=== PATIENT | female | born 1995 | race Caucasian/White ===

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

== ENCOUNTER → 2017-01-04 | Outpatient (CLI) | payer BC, OTHER ==
[2017-01-04 10:45] LABS: CHOLESTEROL/HDL RATIO 5.8
== END | disposition home or self-care (01) ==
LOC: C.LAB 09:20
PROVIDERS: ATTEND Psychiatry & Neurology Child & Adolescent Psychiatry
DX: F33.1 Major depressive disorder, recurrent, moderate (principal); F41.1 Generalized anxiety disorder

== ENCOUNTER → 2017-05-20 | Outpatient (CLI) | payer OTHER ==
--- NOTE | 2017-05-20 16:51 | DIAGNOSTIC IMAGING REPORT ---
CT SINUSES WITH BRAIN LAB CT DOSE: 797.51 mGy.cm CLINICAL HISTORY: CHRONIC SINUSITIS TECHNIQUE: Helical images were acquired in the transverse plane. Sagittal and coronal reformatted images were reviewed. A dose lowering technique was utilized adhering to the principles of ALARA. COMPARISON STUDY: 10/02/2013 FINDINGS: The visualized portions of the intracranial contents are unremarkable in appearance. No abnormalities of either orbit are visualized. The mastoids are symmetrically aerated. The middle ear cavities are well aerated. There is minor right maxillary sinus mucosal thickening. The ostiomeatal units are patent bilaterally. The ethmoid notches are protected. The olfactory grooves measure 4.6 mm in the right, and 4.2 mm and the left. There is no evidence of acute sinusitis. Postsurgical changes involving the ethmoid sinuses are suspected. IMPRESSION: 1. No evidence of acute sinusitis 2. Minor right-sided maxillary sinus mucosal thickening 3. The ostiomeatal units are patent bilaterally Electronically signed by: Familia Dennis M.D. 05/20/2017 4:50 PM Dictated Date/Time: 05/20/2017 4:45 PM
== END | disposition home or self-care (01) ==
LOC: C.CTS 16:23
PROVIDERS: ATTEND Otolaryngology
DX: J32.9 Chronic sinusitis, unspecified (principal)

== ENCOUNTER → 2017-11-08 | Outpatient (CLI) | payer OTHER ==
[~2017-11-08] MED LIST changes: +GADAVIST IV PRN; +GLUCAGON FOR INJ 1 MG VIAL IM SCH; +NURSING VERBAL MED ORDER ONE
--- NOTE | 2017-11-08 13:17 | DIAGNOSTIC IMAGING REPORT ---
ENTEROGRAPHY ABD/PELVIS COMBO HISTORY: 22 years-old Female DIARRHEA, OCCASIONAL BLEEDING acute diarrhea with occasional rectal bleeding. History of prior colonoscopy. COMPARISON: CT abdomen and pelvis 01/02/2009, abdominal ultrasound 07/12/2009 TECHNIQUE: MR enterography of the abdomen and pelvis was obtained both with and without use of 8 mL Gadavist. 1 mg glucagon intramuscular injection was administered into the right upper extremity. 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 lobulations about the bilateral kidneys. Imaged lung bases and imaged inferior cardiac chambers appear unremarkable. Liver, spleen, gallbladder, pancreas and adrenal glands are unremarkable. There is no intrahepatic biliary ductal dilation. The aorta and IVC appear to be within normal limits. No pathologically enlarged lymph nodes identified. No ascites. The soft tissues, bony structures and thecal sac appear unremarkable. The visualized pelvic structures also demonstrate no focal abnormality. Urinary bladder, uterus and adnexa are within normal limits. Minimal free pelvic fluid within the cul-de-sac, likely physiologic. Follicular changes are noted about the ovaries. Scattered nonenlarged lymph nodes of the right lower quadrant mesentery are likely physiologic. No bowel dilation to suggest bowel obstruction. No focal bowel wall thickening or mesenteric inflammation identified. No abscess, fistula or sinus tract is identified. Moderate stool volume about the right hemicolon. Terminal ileum appears unremarkable. Perirectal tissues are within normal limits. Peristalsing bowel is noted within all four quadrants of the abdomen. Study is mildly motion degraded. IMPRESSION: Unremarkable MR enterography. The above report was generated using voice recognition software. It may contain grammatical, syntax or spelling errors. Electronically signed by: Simone Ferreira M.D. 11/08/2017 1:15 PM Dictated Date/Time: 11/08/2017 12:57 PM
== END | disposition home or self-care (01) ==
LOC: C.MRI 10:29
PROVIDERS: ATTEND Internal Medicine Gastroenterology
DX: R19.7 Diarrhea, unspecified (principal); K62.5 Hemorrhage of anus and rectum